=== PATIENT | female | born 1970 | race Hispanic/Latino ===

== ENCOUNTER 2023-02-03 06:50 | Emergency (ER) | payer OTHER ==
[~2023-02-03] VITALS: Ht 152.4 cm; Wt 62.0 kg
[2023-02-03] MEDS ORDERED: AMLODIPINE BESYL5 MG PO (07:15)
[2023-02-03 07:46] LABS: BASOPHILS 0.1 % (0-2); EOSINOPHILS 0.1 % (0-6); HEMATOCRIT 39.7 % (35.0-50.0); LYMPHOCYTES 2.8 % (24-44); MCH 28.7 (27-36); MCHC 32.8 g/dl (30-36); MCV 87.5 fl (81-99); MONOCYTES 3.2 % (0-12); NEUTROPHILS 93.8 % (39-80); PLATELET COUNT 177 K/uL (140-440); RBC 4.53 M/ul (4.3-5.7); RDW 14.7 (10.5-15.0)
[2023-02-03 08:03] LABS: ALBUMIN 4.2 g/dL (3.4-5.0); ALBUMIN/GLOBULIN RATIO 1.17 (1.1-2.4); ALKALINE PHOSPHATASE 127 U/L (46-116); ALT (SGPT) 20 U/L (14-59); AST (SGOT) 21 U/L (15-37); BILIRUBIN, TOTAL 0.6 ng/dL (0.2-1.0); CALCIUM 8.9 mg/dL (8.5-10.1); CARBON DIOXIDE 28 mmol/L (21-32); CHLORIDE 101 mmol/L (98-107); CREATININE, SERUM 0.71 mg/dL (0.55-1.02); GLOMERULAR FILTRATION RATE,EST 101 mL/min (>60); PROTEIN, TOTAL 7.8 g/dL (6.4-8.2); UREA NITROGEN 12 mg/dL (7-18)
[2023-02-03] MEDS ORDERED: AMOX TR-K CLV1 EAC1 PO (09:41)
[2023-02-03 10:31] VITALS: BP 117/56
--- NOTE | 2023-02-03 22:44 | EKG ---
[facility] [address] [facility] [place] [address] Signed Normal sinus rhythm Normal ECG No previous ECGs available Confirmed by Belinda Ronquillo MD () on 02/03/2023 10:44:24 PM Electronically Signed By: BELINDA RONQUILLO MD 02/03/23 2244 PATIENT NAME: CONSUELO TAMMI BARRETT Electrocardiogram DATE OF : 66 PHYSICIAN: BELINDA RONQUILLO MD REPORT #: [id number] REPORT IS CONFIDENTIAL AND NOT TO BE RELEASED WITHOUT AUTHORIZATION
== END 2023-02-03 10:32 | disposition home or self-care (01) ==
LOC: ED 06:50
PROVIDERS: Emergency Medicine
DX: N61.0 Mastitis without abscess (principal); R11.2 Nausea with vomiting, unspecified
CPT/HCPCS: 36415; 71045; 80053; 83605; 84484; 85025; 93005; 93010; 96365; 96375; 99284-25; J0696; J1885